=== PATIENT | female | born 1955 | race Caucasian/White ===

== ENCOUNTER 2016-06-28 10:08 | Outpatient (CLI) ==
[2016-03-01 15:11] VITALS: BMI 31.7
[2016-06-28 12:54] LABS: BASOPHILS % (AUTO) 0.5 % (0.0-3.0); EOSINOPHILS # (AUTO) 0.3 K/ul (0.0-0.7); EOSINOPHILS % (AUTO) 3.1 % (0.0-7.0); HEMATOCRIT 43.3 % (37.0-47.0); HEMOGLOBIN 14.1 g/dl (12.0-16.0); IMMATURE GRANULOCYTE % (AUTO) 0.4 % (0.0-5.0); LYMPHOCYTES # (AUTO) 2.2 K/uL (0.60-3.4); LYMPHOCYTES % (AUTO) 27.2 (10.0-50.0); MEAN CORPUSCULAR HEMOGLOBIN 29.4 pg (27.0-31.0); MEAN CORPUSCULAR HGB CONC 32.6 (31.8-35.4); MEAN CORPUSCULAR VOLUME 90.2 fl (81.0-99.0); MONOCYTES # (AUTO) 0.5 K/uL (0.4-2.0); MONOCYTES % (AUTO) 6.7 (0-10); NEUTROPHILS % (AUTO) 62.1; PLATELET COUNT 326 10^3/uL (140-440); WHITE BLOOD COUNT 8.02 K/ul (4.6-10.2)
[2016-06-28 13:01] LABS: BILIRUBIN,URINE Negative (NEGATIVE); KETONES,URINE Negative (NEGATIVE); LEUKOCYTE ESTERASE ,URINE Negative (NEGATIVE); NITRITE,URINE Negative (NEGATIVE); PROTEIN,URINE Negative (NEGATIVE); URINE, BLOOD Trace-intact (NEGATIVE)
[2016-06-28 13:02] LABS: ADD URINE MICROSCOPIC YES; BACTERIA,URINE TRACE (NOT PRESENT)
[2016-06-28 13:10] LABS: ALBUMIN 3.5 g/dL (3.4-5.0); ALBUMIN/GLOBULIN RATIO 1.21; ANION GAP 11.5; BILIRUBIN,TOTAL 0.58 mg/dL (0.00-1.20); BUN/CREATININE RATIO 14.81; CHOL/HDL RATIO 2.3 (4.5-5.5); CREATININE 0.81 mg/dL (0.60-1.30); POTASSIUM 3.5 mmol/L (3.5-5.10); TOTAL PROTEIN 6.4 g/dL (5.8-8.1)
== END 2016-06-28 10:09 | disposition home or self-care (01) ==
LOC: LAB 10:08
PROVIDERS: ATTEND General Practice
DX: E78.5 Hyperlipidemia, unspecified (principal); I10 Essential (primary) hypertension; Z79.899 Other long term (current) drug therapy
CPT/HCPCS: 36415; 80053; 80061; 81001; 85025

== ENCOUNTER 2016-10-25 11:16 | Outpatient (CLI) ==
[2016-03-01 15:11] VITALS: BMI 31.7
[2016-10-25 13:51] LABS: BILIRUBIN,URINE Negative (NEGATIVE); KETONES,URINE Trace (NEGATIVE); LEUKOCYTE ESTERASE ,URINE Negative (NEGATIVE); NITRITE,URINE Negative (NEGATIVE); PH,URINE 6.5 (5-9); PROTEIN,URINE 1+ (NEGATIVE); URINE, BLOOD Trace-lysed (NEGATIVE)
[2016-10-25 13:56] LABS: BASOPHILS # (AUTO) 0.1 K/uL (0-0.2); BASOPHILS % (AUTO) 0.7 % (0.0-3.0); EOSINOPHILS # (AUTO) 0.4 K/ul (0.0-0.7); HEMATOCRIT 43.5 % (37.0-47.0); HEMOGLOBIN 14.4 g/dl (12.0-16.0); IMMATURE GRANULOCYTE % (AUTO) 0.3 % (0.0-5.0); LYMPHOCYTES # (AUTO) 2.8 K/uL (0.60-3.4); LYMPHOCYTES % (AUTO) 37.3 (10.0-50.0); MEAN CORPUSCULAR HEMOGLOBIN 30.8 pg (27.0-31.0); MEAN CORPUSCULAR HGB CONC 33.1 (31.8-35.4); MEAN CORPUSCULAR VOLUME 92.9 fl (81.0-99.0); MONOCYTES # (AUTO) 0.6 K/uL (0.4-2.0); MONOCYTES % (AUTO) 8.3 (0-10); NEUTROPHILS # (AUTO) 3.7 K/ul (2.0-6.9); NEUTROPHILS % (AUTO) 48.4; PLATELET COUNT 336 10^3/uL (140-440); RED BLOOD COUNT 4.68 10^6/ul (4.20-5.40); WHITE BLOOD COUNT 7.62 K/ul (4.6-10.2)
[2016-10-25 14:00] LABS: ADD URINE MICROSCOPIC YES
[2016-10-25 14:01] LABS: BACTERIA,URINE 1+ (NOT PRESENT)
[2016-10-25 14:20] LABS: ALBUMIN 3.4 g/dL (3.4-5.0); ALBUMIN/GLOBULIN RATIO 1.06; ANION GAP 13.2; BILIRUBIN,TOTAL 0.31 mg/dL (0.00-1.20); BUN/CREATININE RATIO 9.41; CHOL/HDL RATIO 2.2 (4.5-5.5); CREATININE 0.85 mg/dL (0.60-1.30); POTASSIUM 4.2 mmol/L (3.5-5.10); TOTAL PROTEIN 6.6 g/dL (5.8-8.1)
== END 2016-10-25 11:17 | disposition home or self-care (01) ==
LOC: LAB 11:16
PROVIDERS: ATTEND General Practice
DX: E88.81 Metabolic syndrome and other insulin resistance (principal); I10 Essential (primary) hypertension; E78.5 Hyperlipidemia, unspecified; Z00.00 Encounter for general adult medical examination without abnormal findings
CPT/HCPCS: 36415; 80053; 80061; 81001; 85025; 87086

== ENCOUNTER 2017-02-28 13:22 | Outpatient (CLI) ==
[2016-03-01 15:11] VITALS: BMI 31.7
[2017-02-28 13:44] LABS: BASOPHILS % (AUTO) 0.4 % (0.0-3.0); EOSINOPHILS # (AUTO) 0.2 K/ul (0.0-0.7); EOSINOPHILS % (AUTO) 3.1 % (0.0-7.0); HEMATOCRIT 43.4 % (37.0-47.0); HEMOGLOBIN 14.6 g/dl (12.0-16.0); IMMATURE GRANULOCYTE % (AUTO) 0.3 % (0.0-5.0); LYMPHOCYTES # (AUTO) 2.3 K/uL (0.60-3.4); LYMPHOCYTES % (AUTO) 30.6 (10.0-50.0); MEAN CORPUSCULAR HEMOGLOBIN 30.9 pg (27.0-31.0); MEAN CORPUSCULAR HGB CONC 33.6 (31.8-35.4); MEAN CORPUSCULAR VOLUME 91.8 fl (81.0-99.0); MONOCYTES # (AUTO) 0.5 K/uL (0.4-2.0); MONOCYTES % (AUTO) 7.2 (0-10); NEUTROPHILS # (AUTO) 4.3 K/ul (2.0-6.9); NEUTROPHILS % (AUTO) 58.4; PLATELET COUNT 332 10^3/uL (140-440); RED BLOOD COUNT 4.73 10^6/ul (4.20-5.40); WHITE BLOOD COUNT 7.35 K/ul (4.6-10.2)
[2017-02-28 13:45] LABS: BILIRUBIN,URINE 1+ (NEGATIVE); KETONES,URINE Trace (NEGATIVE); LEUKOCYTE ESTERASE ,URINE Negative (NEGATIVE); NITRITE,URINE Negative (NEGATIVE); PROTEIN,URINE 1+ (NEGATIVE); URINE, BLOOD Trace-intact (NEGATIVE)
[2017-02-28 13:46] LABS: ADD URINE MICROSCOPIC YES
[2017-02-28 13:49] LABS: BACTERIA,URINE TRACE (NOT PRESENT)
[2017-02-28 14:42] LABS: ALBUMIN 3.5 g/dL (3.4-5.0); ALBUMIN/GLOBULIN RATIO 1.03; BILIRUBIN,TOTAL 0.47 mg/dL (0.00-1.20); BUN/CREATININE RATIO 16.27; CALCIUM 9.4 mg/dL (8.2-10.2); CHOL/HDL RATIO 2.3 (4.5-5.5); CREATININE 0.86 mg/dL (0.60-1.30); TOTAL PROTEIN 6.9 g/dL (5.8-8.1)
== END 2017-02-28 13:23 | disposition home or self-care (01) ==
LOC: LAB 13:22
PROVIDERS: ATTEND General Practice
DX: E78.5 Hyperlipidemia, unspecified (principal); E88.81 Metabolic syndrome and other insulin resistance; I10 Essential (primary) hypertension; Z79.899 Other long term (current) drug therapy
CPT/HCPCS: 36415; 80053; 80061; 81001; 85025

== ENCOUNTER 2017-06-27 12:07 | Outpatient (CLI) ==
[2016-03-01 15:11] VITALS: BMI 31.7
== END 2017-06-27 12:08 | disposition home or self-care (01) ==
LOC: LAB 12:07
PROVIDERS: ATTEND General Practice
DX: E78.5 Hyperlipidemia, unspecified (principal); E88.81 Metabolic syndrome and other insulin resistance; I10 Essential (primary) hypertension; R31.29 Other microscopic hematuria
CPT/HCPCS: 36415; 80053; 80061; 81001; 85025

== ENCOUNTER 2017-10-24 09:54 | Outpatient (CLI) ==
[2016-03-01 15:11] VITALS: BMI 31.7
== END 2017-10-24 09:55 | disposition home or self-care (01) ==
LOC: FCC-LAB 09:54
PROVIDERS: ATTEND General Practice
DX: E78.5 Hyperlipidemia, unspecified (principal); I10 Essential (primary) hypertension; Z79.899 Other long term (current) drug therapy
CPT/HCPCS: 36415; 80053; 80061; 81001; 85025

== ENCOUNTER 2018-02-22 10:56 | Outpatient (CLI) ==
[2016-03-01 15:11] VITALS: BMI 31.7
== END 2018-02-22 10:57 | disposition home or self-care (01) ==
LOC: FCC-LAB 10:56
PROVIDERS: ATTEND General Practice
DX: E78.5 Hyperlipidemia, unspecified (principal); I10 Essential (primary) hypertension; Z79.899 Other long term (current) drug therapy
CPT/HCPCS: 36415; 80053; 80061; 81001; 85025

== ENCOUNTER 2018-02-27 16:02 | Outpatient (CLI) ==
[2016-03-01 15:11] VITALS: BMI 31.7
== END 2018-02-27 16:03 | disposition home or self-care (01) ==
LOC: FCC-LAB 16:02
PROVIDERS: ATTEND General Practice
DX: R82.90 Unspecified abnormal findings in urine (principal)
CPT/HCPCS: 81001

== ENCOUNTER 2018-06-19 09:09 | Outpatient (CLI) ==
[2016-03-01 15:11] VITALS: BMI 31.7
== END 2018-06-19 09:10 | disposition home or self-care (01) ==
LOC: RHC-LAB 09:09
PROVIDERS: ATTEND General Practice
DX: E78.5 Hyperlipidemia, unspecified (principal); I10 Essential (primary) hypertension; E88.81 Metabolic syndrome and other insulin resistance; R31.29 Other microscopic hematuria; F32.9 Major depressive disorder, single episode, unspecified
CPT/HCPCS: 36415; 80053; 80061; 85025

== ENCOUNTER 2018-07-09 15:30 | Outpatient (RCR) ==
[2016-03-01 15:11] VITALS: BMI 31.7
--- NOTE | 2018-07-04 11:36 | RS.OPPTEV2 ---
Date of Note: 07/04/18 Visit #: 1 Number of visits approved by Insurance: NA Date of Evaluation: 07/04/18 Payer Source: Insurance ([employer]) Surgery Performed?: No Treatment Diagnosis: Bilateral ankle pain, Bilateral Achilles Tendonitis History of Condition/Mechanism of Injury:: Patient reports no injury. States ankle pain seemed to develop during walking and biking for exercise. Prior Level of Function.....Patient was independent with: ADL's, Self Care, Work /Vocation, Caregiving, Ambulation/Mobility, Community Integration/Access Functional Limitations: Standing, Squatting, Ambulation, Community Access/ Integration Current Subjective/complaints:: Mrs. Alejandro reports bilateral ankle pain. States the right is worse than the left, but both hurt. States she has not iced the ankles. States when she pulls the toes back to stretch, she feels increased pain. She has tried different shoes. She has had no previous issues with the LE's. She has pain when she first gets out of bed and with all walking. She has not noticed any significant swelling. She hopes to get back to walking and riding her bike for exercise this Spring. Treatment Side (optional): Bilateral Medical History Surgical History: Cholecystectomy, Hysterectomy, Surgical History Comments:: Lap band Smoking Status: Former smoker Hx Home Medications: Just started steroid pack, Oracea, Amlodipine, Effexor Patient's Goals: Her goal is to get relief of ankle pain and return to walking and riding her bike for exercise by the Spring. Pain Assessment - Pain Description Pain Location: bilateral posterior heel Current Pain Intensity: 3/10 Worst Pain Intensity: 7/10 Functional Outcome Measure LE Functional Scale: 23 (23/80=71.25% impaired) - G Codes & Severity Modifier G Codes & Modifier: NA Source of G Code score: NA Observation - Observation Comments: In Standing, pt demonstrates normal medial arch of the right foot, the left arch is normal, but slightly less. Demonstrates very slight genu valgus bilaterally. Girth Measurement Lower: Malleoli: left 24.5 cm, right 24 cm. Met heads: left 20 cm, right 20.5 cm Gait - Gait Pattern Gait Comments: Patient ambulates without an assistive device, independently. She she demonstrates decreased heelstike bilaterally, walking more on her mid and forefoot. - Left Ankle ROM Left DF with Knee extension: to neutral Comments: PF, inversion, and eversion WNL's. - Right Ankle ROM Right DF with Knee extension: to neutral Comments: PF, inversion, and eversion WNL's. - Left Ankle Strength Left Dorsiflexion: 4+ Good + Left Plantar flexion: 4+ Good + Left Eversion: 4+ Good + Left Inversion: 4+ Good + Comments: Knee strength 4+ to 5/5. - Right Ankle Strength Right Dorsiflexion: 4+ Good + Right Plantarflexion: 4+ Good + Right Eversion: 4 Good Right Inversion: 4+ Good + Comments: Knee strength 4+ to 5/5. Palpation Comments:: Tenderness reported with palpation the bilateral Achilles tendons at the distal portion and insertion site. Sensation - Sensation Right Lower Extremity: Intact/Normal Left Lower Extremity: Intact/Normal Additional Comments: Additional Comments: Heel walking without difficulty. Toe walking with reports of pain in bilateral achilles tendons. Lateral foot walking is normal on the left, difficulty on the right. - Treatment Modality: Ultrasound Parameters/Method Applied: 1.0 w/cm2 continuous X 8 mins each to left and right achillies tendons. Patient Position: Sitting (with legs supported on stool/bench) Interventions - Exercise/Activities/Manual Therapy Exercises/Activities: patient instucted in heelcord stretch with towel/belt, and against the wall. Also advised to ice the areas after being on her feet to help reduce pain and inflammation. Discussed proper foot wear: a good arch support, shoe with heel or heel strap. Total minutes of Exercise: 6 mins Manual Therapy: NA - Charges Timed Code Treatment Minutes: 22 mins Total Treatment Time: 55 mins Procedures billed for this date of service:: Raman Licona, US EVALUATION COMPLEXITY LEVEL EVALUATION COMPLEXITY LEVEL: HISTORY: Low, EXAM OF BODY SYSTEMS: Low, CLINICAL PRESENTATION: Low, CLINICAL DECISION MAKING: Low Assessment Assessment: Mrs. Alejandro presents to therapy with a diagnosis of bilateral Achilles tendonitis. She reports pain with walking, which has decreased her activity level. She demonstrates tight heelcords, and tenderness at the insertion site of the Achilles tendons bilaterally. She demonstrates good potential to benefit from modalities to reduce inflammation and stretching to reduce friction/tension on the Achilles tendons to reduce her symptoms. Progression of strengthening of the ankles will help prevent future problems. Patient Education: Education of diagnosis, Body/Joint mechanics, Home Exercise Program, Home Safety, Activity Modification, Education of Plan of Care Rehab Potential: Good Short Term Goals Goal #1: Pt independent and compliant with HEP and advice. Goal to be met by: 07/18/18 Goal #2: Bilateral DF to 5 degrees. Goal to be met by: 07/18/18 Goal #3: Pt to amb. with good heelstrike consistently in the department. Goal to be met by: 07/18/18 Halfway Goals Goal #1: Pt knows HEP and to continue ex's to maintain functional level at D/C. Goal to be met by: 08/13/18 Goal #2: Score on LE functional scale improved to 53/80. Goal to be met by: 08/13/18 Goal #3: Pt able to amb. community distances with minimal ankle discomfort. Goal to be met by: 08/13/18 Plan - Treatment to be Provided Procedures: Therapeutic Exercises, Therapeutic Activity, Manual Therapy, Patient Education Modalities: Ultrasound/Phonophoresis, Cryotherapy, Hot Packs - Treatment Plan Frequency: 2 X week Duration: 4 weeks Dates of Halfway Goals: 08/13/18 Expiration date of current Insurance Approval:: NA - Treatment Code (1) Ankle pain Code(s): M25.579 - PAIN IN UNSPECIFIED ANKLE AND JOINTS OF UNSPECIFIED FOOT Qualifiers: Chronicity: acute Laterality: bilateral Qualified Code(s): M25.571 - Pain in right ankle and joints of right foot; M25.572 - Pain in left ankle and joints of left foot (2) Achilles tendonitis Code(s): M76.60 - ACHILLES TENDINITIS, UNSPECIFIED LEG Qualifiers: Laterality: bilateral Qualified Code(s): M76.61 - Achilles tendinitis, right leg; M76.62 - Achilles tendinitis, left leg (3) Antalgic gait Code(s): R26.89 - OTHER ABNORMALITIES OF GAIT AND MOBILITY Comments: R26.89
--- NOTE | 2018-07-12 13:54 | RS.OPPTDN ---
Subjective Date of Note: 07/09/18 Visit #: 2 Number of visits approved by Insurance: NA Date of Evaluation: 07/04/18 Payer Source: Insurance Treatment Diagnosis: Bilateral ankle pain, Bilateral Plantar Fasciitis Current Subjective/complaints:: Mikki states her feet felt better after her first visit. States she has been working on the stretches. - Treatment Modality: Ultrasound Parameters/Method Applied: X 8 mins to each foot, with emphasis along the plantar fascia and the heel. US was at 1.5 w/cm2 continuous. Patient Position: Sitting (with legs supported on stool) Interventions - Exercise/Activities/Manual Therapy Exercises/Activities: Reviewed HEP of stretches. States she is using a belt to her heelcord stretches. Instructed in plantar fascia stretch to add to HEP. Received stretching to bilateral heelcords and plantar fascia w/ DTM after US. Total minutes of Exercise: X 26 mins Manual Therapy: Patient received DTM to plantar aspect of foot, along with stretching to the heelcord and plantar fascia, following ultrasound. HOME EXERCISE PROGRAM: heelcord and plantar fascia stretch - Charges Timed Code Treatment Minutes: 42 mins Total Treatment Time: 45 mins Procedures billed for this date of service:: US, EX2 Assessment: Mrs. Alejandro reports benefit after first visit. She appears compliant with HEP and motivated to get relief of pain. Patient demonstrates compliance with HEP?: Yes Short Term Goals Goal #1: Pt independent and compliant with HEP and advice. Goal to be met by: 07/18/18 Goal #2: Bilateral DF to 5 degrees. Goal to be met by: 07/18/18 Goal #3: Pt to amb. with good heelstrike consistently in the department. Goal to be met by: 07/18/18 Top Cutter Goals Goal #1: Pt knows HEP and to continue ex's to maintain functional level at D/C. Goal to be met by: 08/13/18 Goal #2: Score on LE functional scale improved to 53/80. Goal to be met by: 08/13/18 Goal #3: Pt able to amb. community distances with minimal ankle discomfort. Goal to be met by: 08/13/18 Plan Dates of Top Cutter Goals: 08/13/18 Expiration date of current Insurance Approval:: NA PLAN: continue modalities and education, and progress exercises to get relief of bilateral foot pain.
== END 2018-07-11 23:59 ==
PROVIDERS: ATTEND Orthopaedic Surgery
DX: M76.62 Achilles tendinitis, left leg (principal); M76.61 Achilles tendinitis, right leg

== ENCOUNTER 2018-08-06 13:00 | Outpatient (RCR) ==
[2016-03-01 15:11] VITALS: BMI 31.7
--- NOTE | 2018-07-16 15:11 | RS.OPPTDN ---
Subjective Date of Note: 07/12/18 Visit #: 3 Number of visits approved by Insurance: NA Date of Evaluation: 07/04/18 Payer Source: Insurance ([employer]) Treatment Diagnosis: Bilateral ankle pain, Bilateral Plantar Fasciitis Current Subjective/complaints:: Mrs. Alejandro states she stretches all the time. She wonders if it is possible to overdo the stretching. Following treatment, she states her feet feel much better. - Treatment Modality: Ultrasound Parameters/Method Applied: 1.5 w/cm2 continuous X9 mins each to both feet, with focus on the plantar fascia and jewels. Patient Position: Sitting (with legs supported on bench) Interventions - Exercise/Activities/Manual Therapy Exercises/Activities: stretching to bilateral heelcords and plantar fascia. Total minutes of Exercise: 25 mins Manual Therapy: NA HOME EXERCISE PROGRAM: heelcord stretch, plantar fascia stretch - Charges Timed Code Treatment Minutes: 25 mins Total Treatment Time: 43 mins Procedures billed for this date of service:: US, EX Assessment: Pt reports benefit immediately following treatment. Reports she is performing her HEP frequently. Patient demonstrates compliance with HEP?: Yes Short Term Goals Goal #1: Pt independent and compliant with HEP and advice. Goal to be met by: 07/18/18 Progress towards Goal:: Progressing Goal #2: Bilateral DF to 5 degrees. Goal to be met by: 07/18/18 Progress towards Goal:: Progressing Goal #3: Pt to amb. with good heelstrike consistently in the department. Goal to be met by: 07/18/18 Progress towards Goal:: Progressing Senior Living Goals Goal #1: Pt knows HEP and to continue ex's to maintain functional level at D/C. Goal to be met by: 08/13/18 Goal #2: Score on LE functional scale improved to 53/80. Goal to be met by: 08/13/18 Goal #3: Pt able to amb. community distances with minimal ankle discomfort. Goal to be met by: 08/13/18 Plan Dates of Remittance Clerk Goals: 08/13/18 Expiration date of current Insurance Approval:: NA PLAN: Continue stretching and use of modalities to reduce foot pain.
--- NOTE | 2018-07-18 14:50 | RS.OPPTDN ---
Subjective Date of Note: 07/16/18 Visit #: 4 Number of visits approved by Insurance: NA Date of Evaluation: 07/04/18 Payer Source: Insurance ([employer]) Treatment Diagnosis: Bilateral ankle pain, Bilateral Achilles tendonitis Current Subjective/complaints:: Mrs. Alejandro states she thought her ankles were feeling better, but when she is on her feet very long, the pain returns. She continues to perform her HEP regularly. - Treatment Modality: Ultrasound Parameters/Method Applied: 9 mins to each achilles tendon, heel, and plantar aspect of the foot @ 1.5 w/cm2 continuous. Patient Position: Sitting (with legs supported on bench) Interventions - Exercise/Activities/Manual Therapy Exercises/Activities: Stretching to heelcords and plantar fascia along with DTM X 19 mins Manual Therapy: NA HOME EXERCISE PROGRAM: heelcord stretch, plantar fascia stretch - Objective Findings Observations,measurements,etc.: Demonstrates 5-8 degrees of active DF bilaterally with knee extension. - Charges Timed Code Treatment Minutes: 19 mins Total Treatment Time: 37 mins Procedures billed for this date of service:: US, EX Assessment: Mrs. Alejandro reports continued ankle pain with prolonged walking/ standing. She is compliant with her HEP. Patient Education: Education of diagnosis, Body/Joint mechanics, Home Exercise Program Patient demonstrates compliance with HEP?: Yes Short Term Goals Goal #1: Pt independent and compliant with HEP and advice. Goal to be met by: 07/18/18 Progress towards Goal:: Progressing Goal #2: Bilateral DF to 5 degrees. Goal to be met by: 07/18/18 Progress towards Goal:: Met Goal #3: Pt to amb. with good heelstrike consistently in the department. Goal to be met by: 07/18/18 Progress towards Goal:: Progressing Community Action Worker Goals Goal #1: Pt knows HEP and to continue ex's to maintain functional level at D/C. Goal to be met by: 08/13/18 Progress towards goal: Progressing Goal #2: Score on LE functional scale improved to 53/80. Goal to be met by: 08/13/18 Goal #3: Pt able to amb. community distances with minimal ankle discomfort. Goal to be met by: 08/13/18 Plan Dates of [facility] Goals: 08/13/18 Expiration date of current Insurance Approval:: NA PLAN: Continue modalities and progress exercises to start gentle strengthening.
--- NOTE | 2018-07-19 16:37 | RS.OPPTDN ---
Subjective Date of Note: 07/19/18 Visit #: 5 Number of visits approved by Insurance: NA Date of Evaluation: 07/04/18 Payer Source: Insurance ([employer]) Treatment Diagnosis: Bilateral ankle pain, Bilateral Achilles tendonitis Current Subjective/complaints:: Mrs. Alejandro states her pain in the left ankle/ foot is better, but the right continues to hurt. - Treatment Modality: Ultrasound Parameters/Method Applied: X 9 mins each ankle/foot at 1.5 w/cm2 continuous Patient Position: Sitting (with legs supported on bench) Interventions - Exercise/Activities/Manual Therapy Exercises/Activities: Stretching to heelcords and plantar fascia along with DTM X 15 mins. Patient performed heel raises while sitting in a chair. Reports no pain with heel raise on the left, but pain upon returning to restin position from heel raise on the right LE. Patient given red theraband and performed resisted PF X 10 reps on each ankle. Patient able to move through full ROM on the left ankle, but must limit right ankle to a shorter ROM to avoid pain. Total minutes of Exercise: X 25 mins Manual Therapy: NA HOME EXERCISE PROGRAM: heelcord stretch, plantar fascia stretch - Charges Timed Code Treatment Minutes: 43 mins Total Treatment Time: 48 mins Procedures billed for this date of service:: US, EX2 Assessment: Patient reports left ankle pain improving. Right ankle pain continues with prolonged standing. Presents pain more with eccentric contraction with heel raises today in the department on the right ankle. She demonstrates potential to benefit from continued modalities and progressed exercises. Patient Education: Education of diagnosis, Body/Joint mechanics, Home Exercise Program, Education of Plan of Care Patient demonstrates compliance with HEP?: Yes Short Term Goals Goal #1: Pt independent and compliant with HEP and advice. Goal to be met by: 07/18/18 Progress towards Goal:: Progressing Goal #2: Bilateral DF to 5 degrees. Goal to be met by: 07/18/18 Progress towards Goal:: Met Goal #3: Pt to amb. with good heelstrike consistently in the department. Goal to be met by: 07/18/18 Progress towards Goal:: Progressing Flatbed Driver Goals Goal #1: Pt knows HEP and to continue ex's to maintain functional level at D/C. Goal to be met by: 08/13/18 Progress towards goal: Progressing Goal #2: Score on LE functional scale improved to 53/80. Goal to be met by: 08/13/18 Goal #3: Pt able to amb. community distances with minimal ankle discomfort. Goal to be met by: 08/13/18 Plan Dates of Shelter Goals: 08/13/18 Expiration date of current Insurance Approval:: NA PLAN: Progress strenthening exercises as tolerated.
--- NOTE | 2018-07-22 16:20 | RS.OPPTDN ---
Subjective Date of Note: 07/22/18 Visit #: 6 Number of visits approved by Insurance: NA Date of Evaluation: 07/04/18 Payer Source: Insurance ([facility]) Treatment Diagnosis: Bilateral ankle pain, Bilateral Achilles tendonitis Current Subjective/complaints:: Patient reports the right foot/ankle seems to be doing a little better. She performs the exercises daily as instructed. - Treatment Modality: Ultrasound Parameters/Method Applied: phonophoresis with hydrocortisone cream 1% X 9 mins continuous @ 1.5 w/cm2 to each ankle/foot Patient Position: Sitting (with legs elevated on a bench) Interventions - Exercise/Activities/Manual Therapy Exercises/Activities: Stretching to heelcords and plantar fascia along with DTM X 15 mins. Performed resisted DF with red theraband 2 sets 6 reps. Also performed toe curls with towel to strengthen the anterior tib. Advised to add that to HEP. Total minutes of Exercise: 25 mins Manual Therapy: NA HOME EXERCISE PROGRAM: heelcord stretch, plantar fascia stretch, red theraband for resistive PF bilaterally, toe curls with towel/sock - Charges Timed Code Treatment Minutes: 43 mins Total Treatment Time: 43 mins Procedures billed for this date of service:: US, EX2 Assessment: Mrs. Alejandro states right ankle/foot feels better. She is compliant with HEP and very motivated to return to pain-free activity. Patient Education: Education of diagnosis, Body/Joint mechanics, Home Exercise Program, Activity Modification, Education of Plan of Care Patient demonstrates compliance with HEP?: Yes Short Term Goals Goal #1: Pt independent and compliant with HEP and advice. Goal to be met by: 07/18/18 Progress towards Goal:: Progressing Goal #2: Bilateral DF to 5 degrees. Goal to be met by: 07/18/18 Progress towards Goal:: Met Goal #3: Pt to amb. with good heelstrike consistently in the department. Goal to be met by: 07/18/18 Progress towards Goal:: Progressing Packaging Technician Goals Goal #1: Pt knows HEP and to continue ex's to maintain functional level at D/C. Goal to be met by: 08/13/18 Progress towards goal: Progressing Goal #2: Score on LE functional scale improved to 53/80. Goal to be met by: 08/13/18 Goal #3: Pt able to amb. community distances with minimal ankle discomfort. Goal to be met by: 08/13/18 Plan Dates of [facility] Goals: 08/13/18 Expiration date of current Insurance Approval:: NA PLAN: Progress exercises as tolerated.
--- NOTE | 2018-07-25 16:28 | RS.OPPTDN ---
Subjective Date of Note: 07/25/18 Visit #: 7 Number of visits approved by Insurance: n/a Date of Evaluation: 07/04/18 Payer Source: Insurance ([employer]) Treatment Diagnosis: Bilateral ankle pain, Bilateral Achilles tendonitis Current Subjective/complaints:: pt states she is doing her exercises 3 x a day. States she has been wearing houseshoes more lately. Advised pt of importance of wearing supportive shoes. *Precautions: n/a Pain Assessment - Pain Description Pain Location: R lat heel Pain Description: Tightness, Aching Current Pain Intensity: 08/18 - Treatment Modality: Ultrasound Parameters/Method Applied: phonophoresis with hydrocortisone cream 1% x 9 mins at 1.5w/cm2 to each foot Patient Position: Sitting (with LE elevated on bench) Interventions - Exercise/Activities/Manual Therapy Exercises/Activities: pt received gentle stretching to B heelcords and plantar fascia. pt demonstrated knowledge of HEP. Added rolling ball under plantar fascia B feet. pt also received DTM x 15 mins. Total minutes of Exercise: 24 (ex and manual) Manual Therapy: NA HOME EXERCISE PROGRAM: heelcord stretch, plantar fascia stretch, red theraband for resistive PF bilaterally, toe curls with towel/sock - Charges Timed Code Treatment Minutes: 42 Total Treatment Time: 50 Procedures billed for this date of service:: ultrasound, manual, ex Assessment: pt continues with tightness in B achilles as well as plantar fascia. pt is compliant with HEP. Patient Education: Home Exercise Program, Education of Plan of Care Patient demonstrates compliance with HEP?: Yes Short Term Goals Goal #1: Pt independent and compliant with HEP and advice. Goal to be met by: 07/18/18 Progress towards Goal:: Progressing Goal #2: Bilateral DF to 5 degrees. Goal to be met by: 07/18/18 Progress towards Goal:: Met Goal #3: Pt to amb. with good heelstrike consistently in the department. Goal to be met by: 07/18/18 Progress towards Goal:: Progressing Snf Goals Goal #1: Pt knows HEP and to continue ex's to maintain functional level at D/C. Goal to be met by: 08/13/18 Progress towards goal: Progressing Goal #2: Score on LE functional scale improved to 53/80. Goal to be met by: 08/13/18 Goal #3: Pt able to amb. community distances with minimal ankle discomfort. Goal to be met by: 08/13/18 Plan Dates of Slot Tag Inserter Goals: 08/13/18 Expiration date of current Insurance Approval:: n/a PLAN: Plan to continue to progress with stretching and strengthening ex as well as modalities to decrease inflammation and pain.
--- NOTE | 2018-07-30 08:08 | RS.OPPTDN ---
Subjective Date of Note: 07/29/18 Visit #: 8 Number of visits approved by Insurance: NA Date of Evaluation: 07/04/18 Payer Source: Insurance ([employer]) Treatment Diagnosis: Bilateral ankle pain, Bilateral Achilles tendonitis Current Subjective/complaints:: Mrs. Alejandro states her left ankle feels like it is much better. States the right ankle still bothers her, especially if she has to manage steps. She has steps at the entrance of their camper and their home. She returns to her referring physician in two days. She hopes to get to continue therapy. *Precautions: n/a - Treatment Modality: Ultrasound Parameters/Method Applied: 1.6 w/cm2 continuous X 9 mins to bilateral achilles tendons, heel, and plantar fascia. Patient Position: Sitting (with legs supported on bench) Interventions - Exercise/Activities/Manual Therapy Exercises/Activities: pt received stretching to B heelcords and plantar fascia along with DTM to facilitate mobility. Reviewed full HEP- patient independent. Total minutes of Exercise: X 18 mins Manual Therapy: NA HOME EXERCISE PROGRAM: heelcord stretch, plantar fascia stretch, red theraband for resistive PF bilaterally, toe curls with towel/sock - Objective Findings Observations,measurements,etc.: Patient demonstrates consistent heelstrike bilaterally in department. - Charges Timed Code Treatment Minutes: 18 mins Total Treatment Time: 42 mins Procedures billed for this date of service:: Us, EX Assessment: Ms. Alejandro has shown improvement with therapy, especially with decreased pain in the left ankle. The right ankle continues to bother her, especially with having to manage stairs at all. She has potential to gain further relief of pain with continued therapy. Patient demonstrates compliance with HEP?: Yes Short Term Goals Goal #1: Pt independent and compliant with HEP and advice. Goal to be met by: 07/18/18 Progress towards Goal:: Met Goal #2: Bilateral DF to 5 degrees. Goal to be met by: 07/18/18 Progress towards Goal:: Met Goal #3: Pt to amb. with good heelstrike consistently in the department. Goal to be met by: 07/18/18 Progress towards Goal:: Met Project Crew Worker Goals Goal #1: Pt knows HEP and to continue ex's to maintain functional level at D/C. Goal to be met by: 08/13/18 Progress towards goal: Met Goal #2: Score on LE functional scale improved to 53/80. Goal to be met by: 08/13/18 Progress towards goal: Partially Met Comments: Scoring left ankle- met, scoring right ankle --not met Goal #3: Pt able to amb. community distances with minimal ankle discomfort. Goal to be met by: 08/13/18 Progress towards goal: Partially Met Comments: Left ankle pain just about gone. Right ankle pain increased with stairs. Plan Dates of Senior Living Goals: 08/13/18 Expiration date of current Insurance Approval:: NA PLAN: Pt to follow up with referring physician on Sunday07/31/18. Pt independent with HEP. She may benefit from further treatment to the right ankle.
--- NOTE | 2018-08-02 16:01 | RS.PTSUM ---
Progress Note/Summary Date of Note: 08/01/18 Date of Evaluation: 07/04/18 Number of Visits: 9 Reporting Period for this Progress Note: Current Complaints/Gains: Patient reports she saw the doctor yesterday and she has an order to continue therapy for 4-6 more weeks. She was advised to order cushioned socks and a night splint. She has orded the them. She continues to report that ascending/descending stairs causes the most pain. She has steps to get into their camper and their home. Objective Measurements/Presentation: Patient demonstrates 5 degree DF with knee extended bilaterally. Demonstrates consistent heelstrike bilaterally. Ankle strength bilaterally 4+/5. Received treatment of US X 9 mins @ 1.8 w/cm2 to bilateral achilles, posterior and harvey aspect of heel. Received DTM along with stretching to the plantar fascia and achilles tendon. Performed AROM, heel raises in sitting, resisted PF. Demonstrated stretching heelcord off of step. Total Exercise 37 mins. charges US, EX2 G Codes: NA Source of G Code Score: NA - Short Term Goals Goal #1: Pt independent and compliant with HEP and advice. Goal to be met by: 07/18/18 Progress towards Goal:: Met Goal #2: Bilateral DF to 10 degrees. Goal to be met by: 08/10/18 Goal #3: Bilateral ankle strength 5/5. Goal to be met by: 08/10/18 - Retirement Goals Goal #1: Pt knows HEP and to continue ex's to maintain functional level at D/C. Goal to be met by: 08/13/18 Progress towards goal: Met Goal #2: Score on LE functional scale improved to 53/80. Goal to be met by: 08/28/18 Progress towards goal: Progressing Goal #3: Pt able to amb. community distances with minimal ankle discomfort. Goal to be met by: 08/28/18 Progress towards goal: Partially Met Goal #4: Pt able to ascend/descend stairs with minimal to no ankle pain. Goal to be met by: 08/28/18 (new goal) - Assessment Summary: Patient has made progress towards goals., Patient demonstrates potential to gain increased function with therapy - Plan Plan: Continue Plan of Care Dates of Ink Jet Operator Goals: 08/28/18 Expiration date of current Insurance Approval:: NA
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
== END 2018-08-08 23:59 ==
PROVIDERS: ATTEND Orthopaedic Surgery
DX: M76.62 Achilles tendinitis, left leg (principal); M76.61 Achilles tendinitis, right leg; M77.52 Other enthesopathy of left foot and ankle; M77.51 Other enthesopathy of right foot and ankle

== ENCOUNTER 2018-08-22 15:30 | Outpatient (RCR) ==
[2016-03-01 15:11] VITALS: BMI 31.7
--- NOTE | 2018-08-09 15:01 | RS.OPPTDN ---
Subjective Date of Note: 08/09/18 Visit #: 11 Number of visits approved by Insurance: n/a Date of Evaluation: 07/04/18 Payer Source: Insurance ([employer]) Treatment Diagnosis: Bilateral ankle pain, Bilateral Achilles tendonitis Current Subjective/complaints:: pt reports she has been trying to wear regular tennis shoes with cushioned socks. She brought print out of the type of cushioned socks she bought and the night splint. She states the R foot appears to be doing better but still has pain. *Precautions: n/a Pain Assessment - Pain Description Pain Location: B achilles lat heel Pain Description: Burning, Aching Current Pain Intensity: 4 - Treatment Modality: Ultrasound Parameters/Method Applied: US at 1.5 w/cm2 x 8 mins Treatment Area: B achilles and posterior lat heel Patient Position: Sitting Interventions - Exercise/Activities/Manual Therapy Exercises/Activities: pt received deep tissue massage to B feet and plantar surface of feet. pt performed resisted plantar flex, and inversion. pt also performed plantar flex with green theraband, standing heel cord stretching on step. Total minutes of Exercise: 29 Manual Therapy: NA HOME EXERCISE PROGRAM: heelcord stretch, plantar fascia stretch, red theraband for resistive PF bilaterally, toe curls with towel/sock - Charges Timed Code Treatment Minutes: 45 Total Treatment Time: 55 Procedures billed for this date of service:: ultrasound/ ex 2 Short Term Goals Goal #1: Pt independent and compliant with HEP and advice. Goal to be met by: 07/18/18 Progress towards Goal:: Met Goal #2: Bilateral DF to 10 degrees. Goal to be met by: 08/10/18 Progress towards Goal:: Progressing Goal #3: Bilateral ankle strength 5/5. Goal to be met by: 08/10/18 Progress towards Goal:: Progressing Securities Adviser Goals Goal #1: Pt knows HEP and to continue ex's to maintain functional level at D/C. Goal to be met by: 08/13/18 Progress towards goal: Met Goal #2: Score on LE functional scale improved to 53/80. Goal to be met by: 08/28/18 Progress towards goal: Progressing Goal #3: Pt able to amb. community distances with minimal ankle discomfort. Goal to be met by: 08/28/18 Progress towards goal: Progressing Comments: pt continues with discomfort B LE, however is improving with heel strike Goal #4: Pt able to ascend/descend stairs with minimal to no ankle pain. Goal to be met by: 08/28/18 (new goal) Progress towards goal: Progressing Plan Dates of Securities Adviser Goals: 08/28/18 Expiration date of current Insurance Approval:: n/a PLAN: continue to progress with strengthening, stretching and modalities to decrease pain and improve ROM
--- NOTE | 2018-08-13 11:43 | RS.OPPTDN ---
Subjective Date of Note: 08/12/18 Visit #: 11 Number of visits approved by Insurance: NA Date of Evaluation: 07/04/18 Payer Source: Insurance ([employer]) Treatment Diagnosis: Bilateral ankle pain, Bilateral Achilles tendonitis Current Subjective/complaints:: Mrs. Alejandro says she feels like she may have "turned a corner" with the right ankle. She is performing her exercises at home. States she tried to sleep in the night splint on the right ankle, but had to take it off. *Precautions: n/a - Treatment Modality: Ultrasound Parameters/Method Applied: 1.9 w/cm2 continuous to bilateral achilles tendons and at insertion to the calcaneus and plantar aspect of heel and plantar fascia. Total treatment time 18 mins. (9 mins to each foot.) Patient Position: Sitting Interventions - Exercise/Activities/Manual Therapy Exercises/Activities: Patient receives stretching along with manual therapy to the plantar fascia and achilles tendon to fascilitate tissue extensibilty. Patient performed towel curls, ankle DF and pF with green theraband. Also shown resisted eversion and inversion with the theraband. Patient performed them with no reports of discomfort. Total minutes of Exercise: 26 mins Manual Therapy: NA HOME EXERCISE PROGRAM: heelcord stretch, plantar fascia stretch, red theraband for resistive PF bilaterally, toe curls with towel/sock - Objective Findings Observations,measurements,etc.: Patient demonstrates less stance on the right LE today. - Charges Timed Code Treatment Minutes: 44 mins Total Treatment Time: 44 mins Procedures billed for this date of service:: US, Ex2 Assessment: Discussed with patient that treatment to left ankle may be no longer necessary due to improvement with symptoms. Will continue therapy to the right ankle and progression of exercises. Patient demonstrates compliance with HEP?: Yes Short Term Goals Goal #1: Pt independent and compliant with HEP and advice. Goal to be met by: 07/18/18 Progress towards Goal:: Met Goal #2: Bilateral DF to 10 degrees. Goal to be met by: 08/10/18 Progress towards Goal:: Progressing Goal #3: Bilateral ankle strength 5/5. Goal to be met by: 08/10/18 Progress towards Goal:: Progressing Differential Specialist Goals Goal #1: Pt knows HEP and to continue ex's to maintain functional level at D/C. Goal to be met by: 08/13/18 Progress towards goal: Met Goal #2: Score on LE functional scale improved to 53/80. Goal to be met by: 08/28/18 Progress towards goal: Progressing Goal #3: Pt able to amb. community distances with minimal ankle discomfort. Goal to be met by: 08/28/18 Progress towards goal: Progressing Goal #4: Pt able to ascend/descend stairs with minimal to no ankle pain. Goal to be met by: 08/28/18 (new goal) Progress towards goal: Progressing Plan Dates of Shelter Goals: 08/28/18 Expiration date of current Insurance Approval:: 08/28/18 PLAN: Progress exercises.
--- NOTE | 2018-08-16 13:25 | RS.OPPTDN ---
Subjective Date of Note: 08/15/18 Visit #: 13 Number of visits approved by Insurance: NA Date of Evaluation: 07/04/18 Payer Source: Insurance ([employer]) Treatment Diagnosis: Bilateral ankle pain, Bilateral Achilles tendonitis Current Subjective/complaints:: Mikki reports she is wearing the night splint about 2 hours per night on the right foot/ankle. States she has been having most her discomfort along the lateral side of the achilles tendon and heel. She performs her HEP consistently. *Precautions: n/a Pain Assessment - Pain Description Pain Location: right ankle/heel - Treatment Modality: Ultrasound Parameters/Method Applied: 10 mins of Ultrasound at 1.5 w/cm2 continuous to the right ankle. Patient Position: Sitting Interventions - Exercise/Activities/Manual Therapy Exercises/Activities: Patient receives joint distraction of posterior glides of the Talocrual joint. Performed resisted ROM to bilateral ankles with green theraband. Patient corrected to only move the ankle with inversion and eversion and that she does not need to hold it for more than a couple of seconds. She perform towel curl. Again she was advised just to continuously flex the toes to grab the towel, she did not have to lift the towel off the floor. Added eccentric contraction exercises of the achilles tendons by slowly lowering the heel from a toe standing position. Patient requires reminding to focus on the lowering of the heel. Added lateral weight shifting and mini squats on the mini trampoline. Patient reports some right lateral ankle with single leg weight bearing on the right foot while on the trampoline Total minutes of Exercise: 24 mins Manual Therapy: NA HOME EXERCISE PROGRAM: heelcord stretch, plantar fascia stretch, red theraband for resistive PF bilaterally, toe curls with towel/sock - Charges Timed Code Treatment Minutes: 34 mins Total Treatment Time: 47 mins Procedures billed for this date of service:: US, EX2 Assessment: Patient trying to increase her wear time of the night splint on the right ankle. She tolerates progressed activites well. She has required some guidance with exercises to perform them correctly. Patient Education: Education of diagnosis, Body/Joint mechanics, Home Exercise Program, Home Safety, Activity Modification Patient demonstrates compliance with HEP?: Yes Short Term Goals Goal #1: Pt independent and compliant with HEP and advice. Goal to be met by: 07/18/18 Progress towards Goal:: Met Goal #2: Bilateral DF to 10 degrees. Goal to be met by: 08/10/18 Progress towards Goal:: Progressing Goal #3: Bilateral ankle strength 5/5. Goal to be met by: 08/10/18 Progress towards Goal:: Progressing Securities Adviser Goals Goal #1: Pt knows HEP and to continue ex's to maintain functional level at D/C. Goal to be met by: 08/13/18 Progress towards goal: Met Goal #2: Score on LE functional scale improved to 53/80. Goal to be met by: 08/28/18 Progress towards goal: Progressing Goal #3: Pt able to amb. community distances with minimal ankle discomfort. Goal to be met by: 08/28/18 Progress towards goal: Progressing Goal #4: Pt able to ascend/descend stairs with minimal to no ankle pain. Goal to be met by: 08/28/18 (new goal) Progress towards goal: Progressing Plan Dates of Securities Adviser Goals: 08/28/18 Expiration date of current Insurance Approval:: NA PLAN: Continue for one more week to progress exercises and further help decrease ankle pain.
--- NOTE | 2018-08-19 16:37 | RS.OPPTDN ---
Subjective Date of Note: 08/19/18 Visit #: 14 Number of visits approved by Insurance: Na Date of Evaluation: 07/04/18 Payer Source: Insurance ([employer]) Treatment Diagnosis: Bilateral ankle pain, Bilateral Achilles tendonitis Current Subjective/complaints:: Mikki reports she did well over the weekend. She was able to descend steps with hardly any pain in the right ankle. Today her feet are swollen and her BP is up. Brought in her socks that have the cushion for the heel and achilles tendon. States she has slept with her night splint on all night for the last two nights. *Precautions: n/a - Treatment Modality: Ultrasound Parameters/Method Applied: X 8 mins @ w/cm2 continuous to right lateral achilles tendon and ankle Patient Position: Sitting Interventions - Exercise/Activities/Manual Therapy Exercises/Activities: Performed resisted ROM to bilateral ankles with green band for one set, then tried blue band. Patient able to perform all ankle exercises with blue band. Still needs reminding to move slowly and not hold for more than a few seconds. Patient able to move the ankle instead of the hip. She performed towel curl. Eccentric contraction exercises of the achilles tendons by slowly lowering the heel from a toe standing position. Performed lateral weight shifting and mini squats on the mini trampoline. Advised that she could try to recreate this standing on a pillow at home. Total minutes of Exercise: X 22 mins Manual Therapy: NA HOME EXERCISE PROGRAM: heelcord stretch, plantar fascia stretch, green and blue for resisted ankle ROM, toe curls with towel/sock, eccentric heel lowering from toe standing. - Charges Timed Code Treatment Minutes: 30 mins Total Treatment Time: 35 mins Procedures billed for this date of service:: US, EX Assessment: Reports less pain with descending stairs. She is able to progress to the blue theraband without difficulty. Patient Education: Education of diagnosis, Body/Joint mechanics, Home Exercise Program, Activity Modification, Education of Plan of Care Patient demonstrates compliance with HEP?: Yes Short Term Goals Goal #1: Pt independent and compliant with HEP and advice. Goal to be met by: 07/18/18 Progress towards Goal:: Met Goal #2: Bilateral DF to 10 degrees. Goal to be met by: 08/10/18 Progress towards Goal:: Met Goal #3: Bilateral ankle strength 5/5. Goal to be met by: 08/10/18 (80%) Progress towards Goal:: Progressing Snf Goals Goal #1: Pt knows HEP and to continue ex's to maintain functional level at D/C. Goal to be met by: 08/13/18 Progress towards goal: Met Goal #2: Score on LE functional scale improved to 53/80. Goal to be met by: 08/28/18 Progress towards goal: Progressing Goal #3: Pt able to amb. community distances with minimal ankle discomfort. Goal to be met by: 08/28/18 Progress towards goal: Met Goal #4: Pt able to ascend/descend stairs with minimal to no ankle pain. Goal to be met by: 08/28/18 (new goal) Progress towards goal: Progressing Plan Dates of Informatics Application Analyst Goals: 08/28/18 Expiration date of current Insurance Approval:: 08/28/18 PLAN: Continue for one last treatment to add exercises to progress to following D/C.
--- NOTE | 2018-08-23 11:38 | RS.OPPTDC ---
Date of Discharge: 08/22/18 Date of Evaluation: 07/04/18 Number of Visits: 15 Treatment Diagnosis: Bilateral ankle pain, Bilateral Achilles tendonitis Current Complaints/Gains: Mikki reports receiving a night splint that she ordered. She brought it in with her to show us. States she was able to sleep with it on the right foot all night. States she is unsure how tight to pull it. She is performing her HEP. She walked on the treadmill slowly for a short amount of time, without significant increased symptoms. Functional Outcome Measure LE Functional Scale: 59 (59/80=26.25% impairment) - G Codes & Severity Modifier G Codes & Modifier: NA Source of G Code score: NA Gait - Gait Pattern Gait Comments: Pt now ambulating with good heel strike and toe off. Demonstrates symmetrical step length and step phase. Interventions - Exercise/Activities/Manual Therapy Exercises/Activities: Reviewed full HEP. Patient displays good demo of HEP, including eccentric contraction of the achilles with lowering from toe standing position. She is counting to 6 while she lowers her heel to make sure she doesn' t go to fast. She performs proprioception activites on the trampoline with minimal to no right ankle discomfort. We looked at her new night splint and had her put it on to determine fit and how tight to pull it. This night splint is neoprene, with no hard plastic. It extends the toes,as well as pulling the ankle into DF. Advised her to not pull it too tight where she feels more than a very light stretch. Explained that if it is uncomfortable to sleep in, then she probably has it too tight. Total minutes of Exercise: X34 mins Manual Therapy: NA HOME EXERCISE PROGRAM: heelcord stretch, plantar fascia stretch, green and blue for resisted ankle ROM, toe curls with towel/sock, eccentric heel lowering from toe standing. - Objective Findings Observations,measurements,etc.: Ankle strength 4+ to 5/5. - Charges Timed Code Treatment Minutes: 34 mins Total Treatment Time: 40 mins Procedures billed for this date of service:: Ex 2 Assessment Assessment: Patient with good demo of HEP. She reports minimal right ankle discomfort with weight bearing activities. She shows great progress on LE functional scale, with score at evaluation being 23/80 and on this last vist she scored 59/80. Short Term Goals Goal #1: Pt independent and compliant with HEP and advice. Goal to be met by: 07/18/18 Progress towards Goal:: Met Goal #2: Bilateral DF to 10 degrees. Goal to be met by: 08/10/18 Progress towards Goal:: Met Goal #3: Bilateral ankle strength 5/5. Goal to be met by: 08/10/18 (80%) Progress towards Goal:: Partially Met Comments:: Bilateral ankle strength 4+ to 5/5. Custodial Goals Goal #1: Pt knows HEP and to continue ex's to maintain functional level at D/C. Goal to be met by: 08/13/18 Progress towards goal: Met Goal #2: Score on LE functional scale improved to 53/80. Goal to be met by: 08/28/18 Progress towards goal: Met Goal #3: Pt able to amb. community distances with minimal ankle discomfort. Goal to be met by: 08/28/18 Progress towards goal: Met Goal #4: Pt able to ascend/descend stairs with minimal to no ankle pain. Goal to be met by: 08/28/18 (new goal) Progress towards goal: Met Plan Reason for Discharge:: No Further Skilled Therapy Indicated
== END 2018-09-08 23:59 ==
PROVIDERS: ATTEND Orthopaedic Surgery
DX: M76.62 Achilles tendinitis, left leg (principal); M76.61 Achilles tendinitis, right leg; M77.52 Other enthesopathy of left foot and ankle; M77.51 Other enthesopathy of right foot and ankle

== ENCOUNTER 2018-10-17 08:38 | Outpatient (CLI) ==
[2016-03-01 15:11] VITALS: BMI 31.7
== END 2018-10-17 08:39 | disposition home or self-care (01) ==
LOC: RHC-LAB 08:38
PROVIDERS: ATTEND General Practice
DX: E78.5 Hyperlipidemia, unspecified (principal); E88.81 Metabolic syndrome and other insulin resistance; I10 Essential (primary) hypertension
CPT/HCPCS: 36415; 80053; 80061; 81001; 83036; 83525; 85025

== ENCOUNTER 2018-10-24 12:50 | Outpatient (CLI) ==
[2016-03-01 15:11] VITALS: BMI 31.7
== END 2018-10-24 12:51 | disposition home or self-care (01) ==
LOC: RHC-LAB 12:50
PROVIDERS: ATTEND General Practice
DX: R19.7 Diarrhea, unspecified (principal)
CPT/HCPCS: 87493

== ENCOUNTER 2019-02-11 13:20 | Outpatient (CLI) | payer OTHER ==
[2016-03-01 15:11] VITALS: BMI 31.7
== END 2019-02-11 13:21 | disposition home or self-care (01) ==
LOC: CAR 13:20 → EEVIPCON 19:00
PROVIDERS: ATTEND Psychiatry & Neurology Sleep Medicine
DX: G47.33 Obstructive sleep apnea (adult) (pediatric) (principal)
CPT/HCPCS: 95811